=== PATIENT | female | born 1995 | race Caucasian/White ===

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

== ENCOUNTER 2017-05-14 20:46 | Emergency (ER) | payer BC ==
[~2017-05-14] VITALS: Ht 172.7 cm; Wt 79.5 kg
[2017-05-14 21:16] VITALS: BP 148/88; PULSE 81; TEMP 98.6
[2017-05-14] MEDS ORDERED: MONONESSA 35 MC1 TA1 (21:17)
[2017-05-14] MEDS ORDERED: NORCO 325 MG-51 TAB PO (21:23)
== END 2017-05-14 21:34 | disposition home or self-care (01) ==
LOC: COL.ER 20:46
DX: T23.201A Burn of second degree of right hand, unspecified site, initial encounter (principal); X12.XXXA Contact with other hot fluids, initial encounter

== ENCOUNTER → 2017-11-14 | Outpatient (CLI) | payer BC ==
[~2017-11-14] MED LIST: MONONESSA 35 MC1 TA1; NORCO 325 MG-51 TAB PO
== END ==
LOC: COL.RAD 15:28
DX: N93.9 Abnormal uterine and vaginal bleeding, unspecified (principal); Z87.42 Personal history of other diseases of the female genital tract

== ENCOUNTER 2020-01-30 09:23 | Emergency (ER) | payer BC ==
[~2020-01-30] VITALS: Ht 172.7 cm; Wt 86.4 kg
[2020-01-30 09:26] VITALS: BP 148/87; TEMP 97.9
[2020-01-30 09:46] LABS: COLLECTION METHOD CLEAN CATCH
[2020-01-30 09:54] LABS: MUCOUS Present /lpf; PH 5 (5-8); URINE APPEARANCE Hazy; URINE BACTERIA None Seen /hpf; URINE BILIRUBIN Negative (NEGATIVE); URINE BLOOD Negative (NEGATIVE); URINE COLOR Yellow; URINE GLUCOSE Negative (NEGATIVE); URINE KETONE Negative (NEGATIVE); URINE LEUKOCYTE ESTERASE Trace (NEGATIVE); URINE NITRATE Negative (NEGATIVE); URINE PROTEIN(semi-quant) Negative (NEGATIVE); URINE RBC 0-2 /hpf; URINE UROBILINOGEN Negative (NEGATIVE)
[2020-01-30 10:01] LABS: BASO % 0.3 % (0.0-2.0); EOS # 0.3 (0.0-0.7); GRAN # 5.2 (1.4-6.5); GRAN % 65.3 % (42.2-75.2); HEMATOCRIT 39.4 % (37.0-47.0); HEMOGLOBIN 13.5 g/dl (12.5-16.0); LYMPH # 1.8 (1.2-3.4); LYMPH % 22.8 % (20.0-51.0); MEAN CELL VOLUME 92 fl (80.0-100.0); MEAN CORPUSCULAR HEMOGLOBIN 32 pg (27.0-31.0); MEAN CORPUSCULAR HGB CONC 34 g/dl (33.0-37.0); MEAN PLATELET VOLUME 9.8 fl (7.4-10.4); MONO # 0.6 (0.1-0.6); MONO % 7.3 % (1.7-9.3); PLATELET COUNT 216 K/mm3 (130-400); RED BLOOD COUNT 4.27 M/mm3 (4.10-5.30); REDCELL DISTRIBUTION WIDTH-CV 11.8 % (11.5-14.5)
[2020-01-30 11:22] VITALS: PULSE 75
== END 2020-01-30 11:22 | disposition home or self-care (01) ==
LOC: COL.ER 09:23
PROVIDERS: Family Medicine
DX: O20.9 Hemorrhage in early pregnancy, unspecified (principal); Z3A.01 Less than 8 weeks gestation of pregnancy

== ENCOUNTER 2020-02-14 07:00 | Emergency (ER) | payer BC ==
[~2020-02-14] VITALS: Ht 172.7 cm; Wt 86.4 kg
[2020-02-14 07:04] VITALS: TEMP 96.7
[2020-02-14 07:34] LABS: COLLECTION METHOD CATHETER
[2020-02-14 07:38] LABS: BASO % 0.2 % (0.0-2.0); EOS # 0.4 (0.0-0.7); EOS % 5.2 % (0-4.0); GRAN # 5.2 (1.4-6.5); GRAN % 61.5 % (42.2-75.2); HEMATOCRIT 37.7 % (37.0-47.0); LYMPH # 2.1 (1.2-3.4); LYMPH % 25.3 % (20.0-51.0); MEAN CELL VOLUME 92 fl (80.0-100.0); MEAN CORPUSCULAR HEMOGLOBIN 32 pg (27.0-31.0); MEAN CORPUSCULAR HGB CONC 35 g/dl (33.0-37.0); MEAN PLATELET VOLUME 9.4 fl (7.4-10.4); MONO # 0.6 (0.1-0.6); MONO % 7.6 % (1.7-9.3); PLATELET COUNT 228 K/mm3 (130-400); RED BLOOD COUNT 4.09 M/mm3 (4.10-5.30); REDCELL DISTRIBUTION WIDTH-CV 11.8 % (11.5-14.5)
[2020-02-14 07:46] LABS: MUCOUS Present /lpf; PH 5 (5-8); URINE APPEARANCE Clear; URINE BACTERIA None Seen /hpf; URINE BILIRUBIN Negative (NEGATIVE); URINE BLOOD 3+ (NEGATIVE); URINE COLOR Yellow; URINE GLUCOSE Negative (NEGATIVE); URINE KETONE Negative (NEGATIVE); URINE LEUKOCYTE ESTERASE Negative (NEGATIVE); URINE NITRATE Negative (NEGATIVE); URINE PROTEIN(semi-quant) Negative (NEGATIVE); URINE RBC >50 /hpf; URINE UROBILINOGEN Negative (NEGATIVE); URINE WBC 0-2 /hpf
[2020-02-14 07:52] LABS: BILIRUBIN,TOTAL 0.2 mg/dL (0.0-1.0); CALCIUM 9.1 mg/dL (8.4-10.2); CREATININE, serum 0.64 (0.52-1.25); POTASSIUM 3.8 mmol/L (3.4-5.0); TOTAL PROTEIN 7.1 gm/dL (6.4-8.2)
[2020-02-14 08:16] VITALS: BP 118/77
[2020-02-14 09:15] VITALS: PULSE 77
== END 2020-02-14 09:15 | disposition home or self-care (01) ==
LOC: COL.ER 07:00
PROVIDERS: Emergency Medicine
DX: O46.91 Antepartum hemorrhage, unspecified, first trimester (principal); Z3A.08 8 weeks gestation of pregnancy